=== PATIENT | male | born 1990 | race Caucasian/White ===

== ENCOUNTER 2021-06-08 07:43 | Outpatient (CLI) | payer BC, SELFPAY ==
--- NOTE | ~2021-06-08 | MR_ITS ---
EXAMINATION: MR hip LT wo con DATE: 06/08/2021 09:11 INDICATION: Left hip pain TECHNIQUE: Magnetic resonance imaging (MRI) of the left hip was performed without intravenous contra st. Sequences included full-field axial PD-weighted FS FSE and T1-weighted FSE, coronal of the pelvis with PD-weighted FS FSE, T2-weighted FSE and T1-weighted FSE, small field of view of the left hip w ith axial PD-weighted FS FSE, sagittal PD-weighted FS FSE, coronal PD-weighted FS FSE and coronal T2 weighted FSE. Additional radial T1-weighted FGR oriented orthogonal to the acetabular rim were obtai emani for evaluation of the labrum. COMPARISON: None FINDINGS: Bones/labrum/cartilage: Alignment is normal. No fracture or avascular necrosis. 1.9 x 1.7 x 1.3 cm T1 isointense, T2 hyperin tense lesion with lobular margins at the intratrochanteric left femur with appearance suggestive but not diagnostic of enchondroma. Otherwise normal marrow signal with no other suspicious bone lesions i dentified. Small tear at the 10:30-11:30 position of the posterior superior glenoid labrum. Mild part ial-thickness cartilage loss with smooth chondral surface and without degenerative subchondral change s at the posterior aspect of the joint space. Fluid: Symmetric slightly greater amount of fluid within the left hip but which remains within normal limits . No bursitis or other abnormal fluid collections. Soft tissues: Normal and symmetric muscle bulk and signal in the pelvis and visualized proximal thighs. The iliopso as, gluteal and proximal hamstring tendons are normal. Limited evaluation of visceral organs of the p bruno is unremarkable. No pathologically enlarged pelvic/inguinal lymphadenopathy. IMPRESSION: 1. Mild left hip osteoarthritis with small tear at the posterior superior left acetabular labrum. 2. 1.9 x 1.7 x 1.3 cm lesion at the intratrochanteric left femur with appearance suggestive but not d iagnostic of an enchondroma. Recommend correlation with plain radiographs or CT to assess for chondro id matrix . Reviewed, dictated and finalized at location A. [place] [employer] IMPRESSION: 1. Mild left hip osteoarthritis with small tear at the posterior superior left acetabular labrum. 2. 1.9 x 1.7 x 1.3 cm lesion at the intratrochanteric left femur with appearanc e suggestive but not diagnostic of an enchondroma. Recommend correlation with p ephraim radiographs or CT to assess for chondroid matrix .
== END 2021-06-08 07:44 | disposition home or self-care (01) ==
PROVIDERS: PCP Internal Medicine; Visit Provider Orthopaedic Surgery
DX: M16.12 Unilateral primary osteoarthritis, left hip (principal)
CPT/HCPCS: 73721